=== PATIENT | female | born 1935 | race Caucasian/White ===

== ENCOUNTER → 2024-11-19 08:02 | Outpatient (REF) | payer OTHER, SELFPAY ==
[2024-11-19 09:34] LABS: % Basophils 0.2 % (0-2); % Eosinophils 0.1 % (0-6); % Immature Granulocytes 0.7 % (0-0.5); % Lymphocytes 14.1 % (20.5-51.1); % Monocytes 6.6 % (1.7-9.3); % Neutrophils 78.3 % (42.2-75.2); Absolute Immature Granulocytes 0.1 10^3/uL (0-0.05); Absolute Lymphocytes 1.5 10^3/uL (1.2-3.4); Absolute Monocytes 0.7 10^3/uL (0.1-0.6); Absolute Neutrophils 8.5 10^3/uL (1.4-6.5); Hematocrit 41.3 % (37.0-47.0); Hemoglobin 14.3 g/dL (12.0-16.0); Mean Corp Hgb Conc. 34.6 g/dL (33.0-37.0); Mean Corpuscular Hgb 30.1 pg (27.0-31.0); Mean Corpuscular Volume 86.9 fL (81.0-99.0); Mean Platelet Volume 9.1 fL (7.4-10.4); Nucleated Red Blood Cells % 0 %; Platelet Count 347 10^3/uL (130-400); Red Blood Cell Count 4.75 10^6/uL (4.20-5.40); Red Cell Dist. Width 12.8 % (11.5-14.5); White Blood Cell Count 10.9 10^3/uL (4.8-10.8)
[2024-11-19 11:18] LABS: ALT (SGPT) 14 U/L (0-35); AST (SGOT) 18 U/L (14-36); Alkaline Phosphatase 98 U/L (38-126); Blood Urea Nitrogen 28 mg/dl (7-17); Calcium 9.8 mg/dl (8.4-10.2); Carbon Dioxide 23 mmol/L (22-30); Chloride 107 mmol/L (98-107); Glucose 140 mg/dl (70-99); HDL Cholesterol 84 mg/dl; LDL Cholesterol, Calculated 134 mg/dl; Magnesium 2.2 mg/dl (1.6-2.3); Potassium 3.8 mmol/L (3.5-5.1); Sodium 142 mmol/L (135-145); Total Bilirubin 1.6 mg/dl (0.2-1.3); Total Cholesterol 242 mg/dl (50-199); Total Protein 7.3 g/dl (6.3-8.2); Triglyceride 121 mg/dl (10-149); Very Low Density Lipoprotein 24 mg/dl (0-30); eGFR > 60.00
[2024-11-19 11:32] LABS: Free T4 1.46 ng/dl (0.78-2.19); Vitamin D, 25-OH*** 38.5 ng/mL (30-80)
[2024-11-19 11:45] LABS: TSH 1.53 uIU/ml (0.47-4.68)
[2024-11-19 12:37] LABS: Free T3 2.49 pg/ml (2.77-5.27)
[2024-11-19 13:27] LABS: Folate 4.2 ng/ml (2.76-20); Vitamin B12 825 pg/ml (239-931)
== END ==
LOC: REG 08:02
PROVIDERS: ATTENDING PHYSICIAN Registered Nurse
DX: R53.82 Chronic fatigue, unspecified (principal); E87.6 Hypokalemia
CPT/HCPCS: 36415; 80053; 80061; 82306; 82607; 82746; 83735; 84439; 84443; 84481; 85025